=== PATIENT | male | born 1955 | race Caucasian/White ===

== ENCOUNTER 2017-09-02 08:31 | Emergency (ER) | payer OTHER ==
--- NOTE | 2017-09-02 09:35 | EDM.PDOC ---
ED HPI GENERAL MEDICAL PROBLEM - General Chief Complaint: Upper Extremity Injury/Pain Stated Complaint: [id number] HAND INJURY Time Seen by Provider: 09/02/17 08:40 Source of Information: Reports: Patient, RN, RN Notes Reviewed History Limitations: Reports: No Limitations - History of Present Illness INITIAL COMMENTS - FREE TEXT/NARRATIVE: Patient presents to ER with complaint of swollen left ring finger. Patient states he hit the finger with a hammer yesterday while building a deck. Patient did not take wedding ring off. Today it is much more swollen and unable to get the ring off. Patient is able to move the finger. Onset Date: 09/01/17 Duration: Getting Worse Location: Reports: Upper Extremity, Left Quality: Reports: Ache Severity: Severe Improves with: Reports: None Worsens with: Reports: None Associated Symptoms: Reports: No Other Symptoms Left 4-Ring finger Pain Score (Numeric/FACES): 4 - Related Data Allergies Allergy/AdvReac Type Severity Reaction Status Date / Time No Known Allergies Allergy Verified 09/02/17 08:55 Past Medical History Cardiovascular History: Reports: High Cholesterol Genitourinary History: Reports: Prostate Disorder Social & Family History - Family History Family Medical History: Noncontributory - Tobacco Use Smoking Status *Q: Never Smoker - Recreational Drug Use Recreational Drug Use: No Review of Systems - Review of Systems Review Of Systems: ROS reveals no pertinent complaints other than HPI. ED EXAM, GENERAL - Physical Exam Exam: See Below Exam Limited By: No Limitations General Appearance: Alert, WD/WN, No Apparent Distress Eye Exam: Bilateral Eye: Normal Inspection Ears: Normal External Exam, Normal Canal, Hearing Grossly Normal, Normal TMs Nose: Normal Inspection, Normal Mucosa, No Blood Throat/Mouth: Normal Inspection, Normal Lips, Normal Teeth, Normal Gums, Normal Oropharynx, Normal Voice, No Airway Compromise Head: Atraumatic, Normocephalic Neck: Normal Inspection Respiratory/Chest: No Respiratory Distress, Lungs Clear, Normal Breath Sounds, No Accessory Muscle Use, Chest Non-Tender Cardiovascular: Normal Peripheral Pulses, Regular Rate, Rhythm, No Edema, No Gallop, No JVD, No Murmur, No Rub GI/Abdominal: Normal Bowel Sounds, Soft, Non-Tender, No Organomegaly, No Distention, No Abnormal Bruit, No Mass (Male) Exam: Deferred Rectal (Males) Exam: Deferred Back Exam: Normal Inspection, Full Range of Motion, NT Extremities: Other (left ringer finger has swelling/abrasion/ecchymosis. ) Neurological: Alert, Oriented, CN II-XII Intact, Normal Cognition, Normal Gait, Normal Reflexes, No Motor/Sensory Deficits Psychiatric: Normal Affect, Normal Mood Skin Exam: Other (negative except as under extremities) Lymphatic: No Adenopathy Course - Vital Signs Last Recorded V/S: Last Vital Signs Temp 97.6 F 09/02/17 08:33 Pulse 60 09/02/17 08:33 Resp 14 09/02/17 08:33 BP 126/75 09/02/17 08:33 Pulse Ox 98 09/02/17 08:33 - Orders/Labs/Meds Orders: Active Orders 24 hr Category Date Time Status Fingers Fourth Digit Lt F3 [CR] Urgent Exams 09/02/17 08:55 Taken - Radiology Interpretation Free Text/Narrative:: Left ring finger xray: IMPRESSION: 1. Soft tissue swelling is noted over the PIP joint of the fourth finger. 2. No acute fracture or dislocation. Thank you for allowing us to participate in the care of your patient. Dictated and Authenticated by: Kel Watkins DO 09/02/2017 10:19 AM Central Time ([place] & [place]) See rad report Departure - Departure Time of Disposition: 09:33 Disposition: Home, Self-Care 01 Condition: Good Clinical Impression: Contusion Qualifiers: Encounter type: initial encounter Contusion area: finger Finger: ring finger Damage to nail status: without damage Laterality: left Qualified Code(s): S60.042A - Contusion of left ring finger without damage to nail, initial encounter - Discharge Information Referrals: Vaughn Nunez MD [Primary Care Provider] - Forms: ED Department Discharge Additional Instructions: May use Tylenol and/or ibuprofen as directed for pain Ice as tolerated for swelling - My Orders Last 24 Hours: My Active Orders 09/02/17 08:55 Fingers Fourth Digit Lt F3 [CR] Urgent - Assessment/Plan Last 24 Hours: My Active Orders 09/02/17 08:55 Fingers Fourth Digit Lt F3 [CR] Urgent
== END 2017-09-02 09:41 | disposition home or self-care (01) ==
LOC: DL.ED 08:31
DX: S60.042A Contusion of left ring finger without damage to nail, initial encounter (principal); E78.00 Pure hypercholesterolemia, unspecified; W27.8XXA Contact with other nonpowered hand tool, initial encounter
CPT/HCPCS: 73140-F3; 99284